=== PATIENT | female | born 1980 | race Caucasian/White ===

== ENCOUNTER 2021-01-23 19:56 | Emergency (ER) | payer OTHER ==
--- OUTSIDE RECORDS SUMMARY | 2021-01-23 20:00 | XMS REPORT | Continuity of Care Document ---
:1980 Author Organization [facility] t Address [address] [place] [address] Care Team Providers Name Role Phone Helen VELEZ Primary Care Physician Unavailable Mel Lara Attending Clinician Alley GUADALUPE Attending Clinician ALLEY Attending Clinician Unavailable Shahnaz GUADALUPE Attending Clinician Helen VELEZ Attending Clinician Unavailable Payers Payer Name Policy Type Policy Effective Date Expiration Date Sour ce Number MEDICAREMEDICARE PART [id number] MD Viramontes A AND 00:00:00 [id number] 2001-P [id number] [place], [place] This patient has no known problems. Allergies, Adverse Reactions, Alerts This patient has no known allergies or adverse reactions. Family History Family Member Diagnosis Comments Start Date Stop Date Source Natural father Colon cancer MD Oleary son Maternal grandmother Breast cancer Kael Viramontes Social History Social Habit Start Date Stop Date Quantity Comments Source History [facility] MD Viramontes Alcohol Std Drinks History [facility] MD Viramontes Alcohol Binge Tobacco use and 2019-10-31 2019-10-31 Never used MD Marlow on exposure 00:00:00 00:00:00 Alcohol intake 2019-10-31 2019-10-31 Lifetime MD Rebecca rivas 00:00:00 00:00:00 non-drinker (finding) History [facility] 2019-10-31 2019-10-31 1 MD Viramontes Alcohol Frequency 00:00:00 00:00:00 Sex Ass[birth year] At [birth year] MD Marlow on 00:00:00 00:00:00 Smoking Status Start Date Stop Date Source Never smoker MD Viramontes Medications This patient has no known medications. Immunizations Ordered Immunization Filled Immunization Date Status Commen ts Source Name Name Pfizer SARS-CoV-2 2020-11-04 Completed MD Linn rson Vaccination 00:00:00 Pfizer SARS-CoV-2 2020-10-14 Completed MD Linn rson Vaccination 00:00:00 Procedures This patient has no known procedures. Encounters Start End Encounter Admission Attending Care Care Encounter Source Date/Time Date/Time Type Type Clinicians Facility Department ID 2021-01-11 2021-01-11 Emergency [facility] [id number] 22:05:00 23:34:00 Agata Puri [id number] [place] [id number] [place] [id number] 2020-11-04 2020-11-04 Outpatient ADELINA HAGER SABINA MDA [id number] 08:18:57 08:18:57 VI rivas 2020-10-14 2020-10-14 Outpatient ADELINA HAGER MDA MDA [id number] 08:13:35 08:13:35 VI rivas 2020-06-06 2020-06-06 [place] THERESA Christie [id number] 00:00:00 00:00:00 [id number] [facility] [id number] [facility] [id number]. [id number] 2019-10-31 2019-10-31 Outpatient ADELINA VELEZ SABINA MDA [id number] 11:04:34 23:59:00 ANDREA rivas 2019-10-31 2019-10-31 Outpatient ADELINA VELEZ SABINA MDA [id number] 09:44:13 11:03:00 ANDREA rivas Results This patient has no known results.
--- NOTE | 2021-01-23 20:23 | RAD REPORT ---
EXAM DESCRIPTION: Reji Sharma (2 Views)01/23/2021 8:19 pm CLINICAL HISTORY: Cough COMPARISON: 2014 FINDINGS: The lungs appear clear of acute infiltrate. The heart is normal size IMPRESSION: No acute abnormalities displayed
[2021-01-23 21:50] LABS: Absolute Lymphocytes (CBC) 1.6 K/uL (0.7-4.9); Hematocrit 43.2 % (36.0-45.0); MPV 9.8 fL (7.6-11.3); RBC Red Blood Cell Count 4.99 M/uL (3.86-4.86)
[2021-01-23 22:04] LABS: Potassium 4.2 mmol/L (3.5-5.1)
[2021-01-23] MEDS ORDERED: dexAMETHasone 10 MG/ML VIAL ONE (22:28)
[2021-01-23] MEDS ORDERED: CLINDAMYCIN 900MG/D5W 900 MG/50 ML IVPB IV ONE (22:29)
--- NOTE | 2021-01-23 23:34 | ER ---
Nurse's Notes [facility] Name: Ainsley Muse Age: 40 yrs Sex: Female : 1980 Arrival Date: 01/23/2021 Time: 20:01 Bed DIS11 Private MD: Diagnosis: Acute lymphadenitis of face, head and neck Presentation: 01/23 21:00 Chief complaint: Patient states: Pain on right side of neck, difficulty swallowing, kg SOB, Loss of appetite x 2 wks. Coronavirus screen: Client denies travel out of the [place] in the last 14 days. At this time, unable to obtain information related to travel outside the [place] Client presents with at least one sign or symptom that may indicate coronavirus-19. Standard/surgical mask placed on the client. Provider contacted for isolation considerations. Ebola Screen: Patient negative for fever greater than or equal to 101.5 degrees Fahrenheit, and additional compatible Ebola Virus Disease symptoms Patient denies exposure to infectious person. Patient denies travel to an Ebola-affected area in the 21 days before illness onset. Initial Sepsis Screen: Does the patient meet any 2 criteria? No. Patient's initial sepsis screen is negative. Does the patient have a suspected source of infection? No. Patient's initial sepsis screen is negative. Risk Assessment: Do you want to hurt yourself or someone else? Patient reports no desire to harm self or others. Onset of symptoms was January 09, 2021. 21:00 Method Of Arrival: Ambulatory kg 21:00 Acuity: DARELL 4 kg Triage Assessment: 21:04 General: Appears in no apparent distress. Behavior is calm, cooperative, appropriate kg for age, quiet. Pain: Complains of pain in neck. Respiratory: Reports shortness of breath at rest on exertion cough that is non-productive, Onset: The symptoms/episode began/occurred gradually, the patient has mild shortness of breath. 21:04 EENT: Reports difficulty swallowing. 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 - Social history:: Smoking status: Patient denies any tobacco usage or history of. - Family history:: not pertinent. - Hospitalizations: : No recent hospitalization is reported. Screenin:07 Abuse screen: Denies threats or abuse. Denies injuries from another. Nutritional kg screening: No deficits noted. Tuberculosis screening: No symptoms or risk factors identified. Fall Risk None identified. Assessment: 21:30 General: Appears in no apparent distress. Behavior is calm, cooperative. Neuro: Level bb of Consciousness is awake, alert, obeys commands, Oriented to person, place, time, situation. Cardiovascular: Capillary refill < 3 seconds Patient's skin is warm and dry. Respiratory: Airway is patent Respiratory effort is even, unlabored. GI: No signs and/or symptoms were reported involving the gastrointestinal system. Derm: Skin is pink, warm \T\ dry. Musculoskeletal: Circulation, motion, and sensation intact. 23:00 Reassessment: IV infiltrated Dr Green notified new orders received pt medicated see AUG.bb 01/24 00:09 Reassessment: Patient is alert, oriented x 3, equal unlabored respirations, skin bb warm/dry/pink. pt verbalized understanding of and agrees to plan of care discharge instructions given pt ambulated with steady gait to exit. Vital Signs: 01/23 21:00 BP 140 / 92; Pulse 78; Resp 18; Temp 98.4(O); Pulse Ox 100% on R/A; Weight 63.05 kg kg (M); Height 5 ft. 0 in. (152.40 cm) (R); Pain 4/10; 01/24 00:09 BP 142 / 88; Pulse 75; Resp 16 S; Temp 97.1(TE); Pulse Ox 100% ; bb 01/23 21:00 Body Mass Index 27.15 (63.05 kg, 152.40 cm) kg ED Course: 01/23 20:01 Patient arrived in ED. es 20:19 XRAY Chest Pa And Lat (2 Views) In Process Unspecified. EDMS 21:04 Triage completed. kg 21:07 Patient has correct armband on for positive identification. kg 21:13 Richardson Green MD is Attending Physician. rn 22:00 Inserted saline lock: 22 gauge in right antecubital area, using aseptic technique. bb Missed attempt(s): 20 gauge in left antecubital area. Bleeding controlled, band aid applied, catheter tip intact. 23:08 Soft Tissue Neck Wo Contr In Process Unspecified. EDMS 01/24 00:10 No provider procedures requiring assistance completed. IV discontinued, intact, bb bleeding controlled, No redness/swelling at site. Pressure dressing applied. Administered Medications: 00:07 Discontinued: Clindamycin 900 mg IVPB once over 30 mins; (mix in 50 mL) bb 01/23 22:14 Drug: Decadron - Dexamethasone 10 mg Route: IVP; Infused Over: 3 mins; Site: left tl1 antecubital; 01/24 00:06 Follow up: Response: No adverse reaction bb 01/23 22:14 Drug: Clindamycin 900 mg Route: IVPB; Infused Over: 30 mins; Site: left antecubital; tl1 23:50 Drug: Clindamycin 300 mg Route: IM; Site: right gluteus; bb 01/24 00:08 Follow up: Response: No adverse reaction bb Outcome: 01/23 23:34 Discharge ordered by . rn 01/24 00:10 Discharged to home ambulatory. bb Condition: stable Discharge instructions given to patient, Instructed on discharge instructions, follow up and referral plans. medication usage, Demonstrated understanding of instructions, follow-up care, medications, Prescriptions given X 2. 00:10 Patient left the ED. bb Signatures: Dispatcher [employer] [facility] Tammie Burns Brenda, RN RN bb Richardson Green MD MD rn Lasagna, Tonya, RN RN tl1 Beulah Blum RN RN kg
--- NOTE | 2021-01-23 23:34 | EDPHYS ---
Physician Documentation [facility] Name: Ainsley Muse Age: 40 yrs Sex: Female : 1980 Arrival Date: 01/23/2021 Time: 20:01 Bed DIS11 Private MD: ED Physician Richardson Green HPI: 01/23 21:15 This 40 yrs old Female presents to ER via Ambulatory with complaints of rn Shortness Of Breath, Decreased Appetite, Fever, Neck Swelling. 21:15 The patient or guardian complains of pain, swelling. The symptoms are located on the rn Right anterior neck. Onset: The symptoms/episode began/occurred 1 week(s) ago. Context: The problem was sustained at home, The neck injury/problem resulted from from unknown cause. Associated signs and symptoms: Pertinent positives: This patient does not have any pertinent positive signs or symptoms associated with neck pain. Pertinent negatives: chills, fever, headache, bladder incontinence, bowel incontinence, numbness, tingling, vomiting, weakness. The pain does not radiate. Modifying factors: The symptoms are alleviated by nothing. the symptoms are aggravated by movement, pressure. Severity of symptoms: At their worst the symptoms were moderate, in the emergency department the symptoms are unchanged. The patient has not experienced similar symptoms in the past. The patient has not recently seen a physician. 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 - Social history:: Smoking status: Patient denies any tobacco usage or history of. - Family history:: not pertinent. - Hospitalizations: : No recent hospitalization is reported. ROS: 21:17 Constitutional: Negative for fever, chills, and weight loss, Eyes: Negative for injury, rn pain, redness, and discharge, ENT: + sore throat Neck: + neck pain and swelling Cardiovascular: Negative for chest pain, palpitations, and edema, Respiratory: Negative for cough, wheezing, and pleuritic chest pain, Abdomen/GI: Negative for abdominal pain, nausea, vomiting, diarrhea, and constipation, MS/Extremity: Negative for injury and deformity, Skin: Negative for injury, rash, and discoloration, Neuro: Negative for headache, weakness, numbness, tingling, and seizure. 21:17 All other systems are negative. Exam: 21:17 Constitutional: This is a well developed, well nourished patient who is awake, alert, rn and in no acute distress. Head/Face: Normocephalic, atraumatic. Eyes: Periorbital areas with no swelling, redness, or edema. ENT: Mild pharyngeal erythema, no evidence of peritonsillar abscess, uvula midline Neck: Right anterior neck with tenderness to palpation and mild lymphadenopathy. No crepitus. Cardiovascular: Regular rate and rhythm. No pulse deficits. Respiratory: No increased work of breathing, no retractions or nasal flaring. Skin: Warm, dry MS/ Extremity: Pulses equal, no cyanosis. Neuro: Awake and alert, GCS 15 Vital Signs: 21:00 BP 140 / 92; Pulse 78; Resp 18; Temp 98.4(O); Pulse Ox 100% on R/A; Weight 63.05 kg kg (M); Height 5 ft. 0 in. (152.40 cm) (R); Pain 4/10; 0812 00:09 BP 142 / 88; Pulse 75; Resp 16 S; Temp 97.1(TE); Pulse Ox 100% ; bb 01/23 21:00 Body Mass Index 27.15 (63.05 kg, 152.40 cm) kg MDM: 01/23 21:13 Patient medically screened. rn 23:32 Differential diagnosis: CT neck without abscess or deep space infection. Show some rn lymphadenopathy bilateral neck worse on the right. No evidence of peritonsillar abscess. Will DC home with antibiotics and steroids. 23:33 Differential diagnosis: Lymphadenopathy, peritonsillar abscess, deep space infection, rn lymphadenitis, strep. Data reviewed: vital signs, nurses notes, lab test result(s), radiologic studies, CT scan, plain films, and as a result, I will discharge patient. Test interpretation: by ED physician or midlevel provider: plain radiologic studies, Chest x-ray negative for pneumothorax or pneumonia.. Counseling: I had a detailed discussion with the patient and/or guardian regarding: the historical points, exam findings, and any diagnostic results supporting the discharge/admit diagnosis, radiology results, the need for outpatient follow up, to return to the emergency department if symptoms worsen or persist or if there are any questions or concerns that arise at home. Response to treatment: the patient's symptoms have mildly improved after treatment, and as a result, I will discharge patient. Special discussion: I discussed with the patient/guardian in detail that at this point there is no indication for admission to the hospital. It is understood, however, that if the symptoms persist or worsen the patient needs to return immediately for re-evaluation. ED course: CT neck without abscess or deep space infection. Show some lymphadenopathy bilateral neck worse on the right. No evidence of peritonsillar abscess. Will DC home with antibiotics and steroids. 01/23 21:11 Order name: Strep; Complete Time: 22:23 kg 01/23 21:13 Order name: CBC with Diff; Complete Time: 22:03 rn 01/23 20:04 Order name: XRAY Chest Pa And Lat (2 Views); Complete Time: 21:13 rn 01/23 21:13 Order name: Basic Metabolic Panel; Complete Time: 22:23 rn 01/23 22:24 Order name: Throat Culture EDMS 01/23 21:13 Order name: IV Start; Complete Time: 22:05 rn 01/23 23:06 Order name: Soft Tissue Neck Wo Contr EDMS Administered Medications: 01/24 00:07 Discontinued: Clindamycin 900 mg IVPB once over 30 mins; (mix in 50 mL) 01/23 22:14 Drug: Decadron - Dexamethasone 10 mg Route: IVP; Infused Over: 3 mins; Site: left tl1 antecubital; 01/24 00:06 Follow up: Response: No adverse reaction 01/23 22:14 Drug: Clindamycin 900 mg Route: IVPB; Infused Over: 30 mins; Site: left antecubital; tl1 23:50 Drug: Clindamycin 300 mg Route: IM; Site: right gluteus; 01/24 00:08 Follow up: Response: No adverse reaction Disposition Summary: 01/23/21 23:34 Discharge Ordered Location: Home rn Problem: new rn Symptoms: have improved rn Condition: Stable rn Diagnosis - Acute lymphadenitis of face, head and neck rn Followup: rn - With: Private Physician - When: As needed - Reason: Recheck today's complaints, Re-evaluation by your physician Discharge Instructions: - Discharge Summary Sheet rn - Lymphadenopathy rn Forms: - Medication Reconciliation Form rn - Thank You Letter rn - Antibiotic digital marketing intern - Prescription Opioid Use rn Prescriptions: - Clindamycin HCl 300 mg Oral Capsule - take 1 capsule by ORAL route every 6 hours for 10 days; 40 capsule; Refills: 0, rn Product Selection Permitted - Medrol (Almas) 4 mg Oral Tablets, Dose Pack - take 1 tablet by ORAL route as directed - follow package instructions; 1 rn packet; Refills: 0, Product Selection Permitted Signatures: Dispatcher [employer] EDYasmine Wolf RN RN Richardson Nicolas MD MD rn Lasagna, Tonya RN RN tl1 Beulah Blum, RN RN kg Corrections: (The following items were deleted from the chart) 01/23 23:06 21:12 Soft Tissue Neck W/Contr+CT.RAD.BRZ ordered. [facility] EDIA 23:34 23:32 Differential diagnosis: CT neck without abscess or deep space infection. Show rn some lymphadenopathy bilateral neck worse on the right. No evidence of peritonsillar abscess. Will DC home with antibiotics and steroids rn
[2021-01-24] MEDS ORDERED: CLINDAMYCIN IV 150 MG/ML (4 mL) VIAL ONE (00:11)
[2021-01-24 00:33] VITALS: O2SAT 100
[2021-01-24 00:34] VITALS: BP 142/88; TEMP 97.1
--- NOTE | 2021-01-24 12:13 | RAD REPORT ---
EXAM DESCRIPTION: CT - Soft Tissue Neck Wo Contr - 01/24/2021 6:32 am CLINICAL HISTORY: Swollen neck with right neck pain for 2 weeks. COMPARISON: None. TECHNIQUE: Axial 3.[address] imaging of the neck performed without contrast. Reformatted coronal and s agittal images obtained. Automated exposure control, adjustment of the mA and/or kV according to patient size, or use of itera tive reconstruction was performed. FINDINGS: There is mild asymmetric enlargement of the right level II lymph node, 2.9 x 1.1 x 1.0 cm in the area of the metallic marker. There is no adjacent edema. There are nonenlarged scattered lymph nodes throughout the remaining right and left neck. No subcutaneous fluid collection. No subcutaneou s emphysema. The submandibular and parotid glands are unremarkable. There is no parapharyngeal edema. Normal epigl ottis. No prevertebral soft tissue swelling. The vocal folds and subglottic airway appear normal. Intraorbital contents are unremarkable. Clear paranasal sinuses. Mastoid air cells are clear. Skull b ase appears normal. Imaged facial bones are unremarkable. Unremarkable thyroid. No supraclavicular lymphadenopathy. Clear lung apices. There is moderate lower cervical degenerative endplate change. No fracture or subluxation. No spinal canal stenosis. Neuroforamen are widely patent bilaterally at all levels. Intact posterior elements. IMPRESSION: 1. Mild right level II lymphadenopathy in the area of the metallic marker. No subcutan eous fluid collection, edema, or other mass lesion. Electronically signed by: Carrie Lincoln DO 01/23/2021 11:27 PM CDT Due to temporary technical issues with the PACS/Fluency reporting system, reports are being signed by the in house radiologist without review as a courtesy to ensure prompt reporting. The interpreting r adiologist is fully responsible for the content of the report.
== END 2021-01-24 00:10 | disposition home or self-care (01) ==
LOC: ER 19:56
DX: L03.891 Acute lymphangitis of head [any part, except face] (principal); L03.212 Acute lymphangitis of face; L03.222 Acute lymphangitis of neck
CPT/HCPCS: 87070; 85025; 80048; 36415; 87081; 70490; 71046; 96375; 96372; 96374; 99284; J1100

== ENCOUNTER 2021-02-16 14:17 | Emergency (ER) | payer OTHER ==
--- OUTSIDE RECORDS SUMMARY | 2021-02-16 14:20 | XMS REPORT | Continuity of Care Document ---
:[address] [facility] t Address [address] [place] [address] Care Team Providers Name Role Phone Helen VELEZ Primary Care Physician Unavailable Mel Lara Attending Clinician Alley GUADALUPE Attending Clinician ALLEY Attending Clinician Unavailable Shahnaz GUADALUPE Attending Clinician Helen VELEZ Attending Clinician Unavailable Payers Payer Name Policy Type Policy Effective Date Expiration Date Sour ce Number MEDICAREMEDICARE PART [id number] 2002 MD Viramontes A AND 00:00:00 [id number] 2001-P [id number] [place], [place] [facility] Problems This patient has no known problems. Allergies, Adverse Reactions, Alerts This patient has no known allergies or adverse reactions. Family History Family Member Diagnosis Comments Start Date Stop Date Source Natural father Colon cancer MD Oleary son Maternal grandmother Breast cancer Kael Viramontes Social History Social Habit Start Date Stop Date Quantity Comments Source History [facility] MD Viramontes Alcohol Std Drinks History [facility] MD Viramontes Alcohol Binge Tobacco use and 2019-10-31 2019-10-31 Never used MD Marlow on exposure 00:00:00 00:00:00 Alcohol intake 2019-10-31 2019-10-31 Lifetime MD Rebecca rivas 00:00:00 00:00:00 non-drinker (finding) History [facility] 2019-10-31 2019-10-31 1 MD Viramontes Alcohol Frequency 00:00:00 00:00:00 Sex Ass[birth year] At [birth year] MD Marlow on 00:00:00 00:00:00 Smoking Status Start Date Stop Date Source Never smoker MD Viramontes Medications This patient has no known medications. Immunizations Ordered Immunization Filled Immunization Date Status Commen ts Source Name Name Haile SARS-CoV-2 2020-11-04 Completed MD Linn rson Vaccination 00:00:00 Pfizer SARS-CoV-2 2020-10-14 Completed MD Linn rson Vaccination 00:00:00 Procedures This patient has no known procedures. Encounters Start End Encounter Admission Attending Care Care Encounter Source Date/Time Date/Time Type Type Clinicians Facility Department ID 2021-01-11 2021-01-11 Emergency [facility] [id number] 22:05:00 23:34:00 Agata Puri [id number] [place] [id number] [place] [id number] 2020-11-04 2020-11-04 Outpatient ADELINA HAGER MDA MDA [id number] 08:18:57 08:18:57 VI rivas 2020-10-14 2020-10-14 Outpatient ADELINA HAGER MDA MDA [id number] 08:13:35 08:13:35 VI rivas 2020-06-06 2020-06-06 Dustin Audrey [facility] [id number] 00:00:00 00:00:00 Vipul Yang [id number] [facility] [id number] [facility] [id number]. [id number] 2019-10-31 2019-10-31 Outpatient ADELINA VELEZ SABINA MDA [id number] 11:04:34 23:59:00 ANDREA rivas 2019-10-31 2019-10-31 Outpatient ADELINA VELEZ SABINA MDA [id number] 09:44:13 11:03:00 ANDREA rivas Results This patient has no known results.
--- OUTSIDE RECORDS SUMMARY | 2021-02-16 14:20 | XMS REPORT | Clinical Summary ---
:1980 Author Organization [facility] MD Oleary [facility] Address [address] [place] [id number] Care Team Providers Name Role Phone Helen Parsons MD Primary Care Provider Allergies No Known Active Allergies Medications No known medications Active Problems No known active problems Encounters Date Type Specialty Care Team Description 11/04/2020 Immunization Infectious Diseases Kofi Kirk SARS -CoV-2 vaccination (Primary Dx) 11/04/2020 Travel 10/14/2020 Immunization Infectious Diseases Kofi Kirk SARS -CoV-2 vaccination (Primary Dx) 10/14/2020 Travel 09/23/2020 Orders Only Infectious Diseases Kofi Kirk SARS -CoV-2 vaccination MD after 02/17/2020 Immunizations Name Administration Dates Next Due Pfizer SARS-CoV-2 Vaccination 11/04/2020, 10/14/2020 Surgical History Surgery Date Site/Laterality Comments TUBAL LIGATION APPENDECTOMY Family History Medical History Relation Name Comments Colon cancer Father Breast cancer Maternal Grandmother Relation Name Status Comments Father Maternal Grandmother Social History Tobacco Use Types Packs/Day Years Used Date Never Smoker Smokeless Tobacco: Never Used Alcohol Use Standard Drinks/Week Comments Never 0 (1 standard drink = 0.6 oz pure alcoho l) Alcohol Habits Answer Date Recorded How often do you have a drink containing alcohol? Never 10/31/2019 How many drinks containing alcohol do you have on a typical Not asked day when you are drinking? How often do you have six or more drinks on one occasion? No t asked Sex Assigned at Date Recorded Not on file Last Filed Vital Signs Not on file Plan of Treatment Health Maintenance Due Date Last Done Comments COVID-19 Vaccination Completed 11/04/2020, 10/14/2020 Results Not on fileafter 02/17/2020 Insurance Payer Benefit Plan / Subscriber ID Effective Dates Phone Addre ss Type Group MEDICARE MEDICARE PART A [id number] 2002-Hilda [phone] [place] AND B t 2
[2021-02-16 20:52] LABS: Urine Blood 2+ (Negative); Urine Glucose Negative (Negative); Urine Protein Negative (Negative)
[2021-02-16 20:53] LABS: Absolute Lymphocytes (CBC) 1.5 K/uL (0.7-4.9); Hematocrit 44.5 % (36.0-45.0); Lymphocytes % 23.2 % (15.3-44.8); MPV 10.3 fL (7.6-11.3); Protime INR 1.04; RBC Red Blood Cell Count 5.13 M/uL (3.86-4.86)
[2021-02-16 21:14] LABS: ALT/SGPT 56 U/L (12-78); AST/SGOT 20 U/L (15-37); Albumin 4.4 g/dL (3.4-5.0); Alkaline Phosphatase 121 U/L (45-117); BUN Blood Urea Nitrogen 9 mg/dL (7-18); Bicarbonate 27 mmol/L (21-32); Bilirubin Direct 0.1 mg/dL (0-0.2); Bilirubin Total 0.6 mg/dL (0.2-1.0); Glucose Level 90 mg/dL (74-106); NT PRO-BNP 71 pg/mL (<125); Potassium 3.8 mmol/L (3.5-5.1); Protein, Total 8.3 g/dL (6.4-8.2); Sodium Level 140 mmol/L (136-145); Troponin (Emerg Dept Use Only) < 0.02 ng/mL (0.0-0.045)
[2021-02-16] MEDS ORDERED: ONDANSETRON 4 MG/2 ML VIAL ONE (21:28)
[2021-02-16] MEDS ORDERED: DIPHENHYDRAMINE 50 MG/ML VIAL ONE (21:28)
[2021-02-16] MEDS ORDERED: MORPHINE 4 MG/ML SYR ONE (21:28)
[2021-02-16] MEDS ORDERED: NA CHLORIDE 0.9% 1,000 ML ONE (21:29)
--- NOTE | 2021-02-16 21:31 | RAD REPORT ---
EXAM DESCRIPTION: Reji Single View02/16/2021 9:08 pm CLINICAL HISTORY: cough COMPARISON: January 23, 2021 FINDINGS: The lungs appear clear of acute infiltrate. The heart is normal size IMPRESSION: No acute abnormalities displayed
--- NOTE | 2021-02-16 21:51 | RAD REPORT ---
EXAM DESCRIPTION: CT - Soft Tissue Neck W/Contr - 02/16/2021 9:40 pm CLINICAL HISTORY: Neck pain and swelling COMPARISON: January 23, 2021 TECHNIQUE: Computed axial tomography of the neck was obtained. 50 cc Isovue 300 was administered in travenously. Coronal and sagittal reconstruction was performed. All CT scans are performed using dose optimization technique as appropriate and may include automated exposure control or mA/KV adjustment according to patient size. FINDINGS: The pharynx, tongue base, larynx and subglottic trachea appear unremarkable The parotid, submandibular and thyroid glands appear unremarkable. 1 centimeter lymph node anterior to the right jugular vein at the level of submandibular gland is wit hout significant change in size. The sinuses and mastoids are clear. IMPRESSION: Mildly enlarged right neck lymph node without significant change from the prior exam and probably reactive in nature.
--- NOTE | 2021-02-16 22:49 | EDPHYS ---
Physician Documentation [facility] Name: Ainsley Muse Age: 40 yrs Sex: Female : 1980 Arrival Date: 02/16/2021 Time: 14:34 Bed DX2 Private MD: ED Physician Bernardino Martinez HPI: 02/16 19:10 This 40 yrs old Female presents to ER via Ambulatory with complaints of Neck mh7 Swelling, Decreased Appetite, Fatigue. 19:10 The patient or guardian complains of pain, that is acute, swelling, tenderness. The mh7 symptoms are located on the Right anterior neck. Onset: The symptoms/episode began/occurred 6 week(s) ago. Context: The problem was sustained at an unknown location, The neck injury/problem resulted from from unknown cause. Associated signs and symptoms: Pertinent positives: Decreased appetite, fatigue, Pertinent negatives: chills, constipation, fever, headache, bladder incontinence, bowel incontinence, nausea, numbness, tingling, vomiting, weakness. The pain does not radiate. Modifying factors: The symptoms are alleviated by nothing. the symptoms are aggravated by pressure. Severity of symptoms: At their worst the symptoms were moderate, 21 day(s) ago, in the emergency department the symptoms are unchanged. The patient has been recently seen at the [facility] Emergency Department, last month. Patient reports swelling of right anterior neck for 6 weeks. Area is painful and tender to touch. She also reports decreased appetite and generalized fatigue. She was seen here on 01/23 for this issue and had work-up done including a noncontrast soft tissue neck CT which showed enlarged lymph node. She was given prescription for antibiotics and steroids which she states has not improved her condition. She has not had any follow-up with a PCP or specialist since being seen in the ED. She denies any headache, chest pain, abdominal pain, shortness of breath, nausea, vomiting, dizziness, numbness/tingling, or focal weakness.. 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 - Social history:: Smoking status: Patient denies any tobacco usage or history of. ROS: 19:10 Constitutional: Negative for fever, chills, and weight loss, Eyes: Negative for injury, mh7 pain, redness, and discharge, ENT: Negative for injury, pain, and discharge, Cardiovascular: Negative for chest pain, palpitations, and edema, Respiratory: Negative for shortness of breath, cough, wheezing, and pleuritic chest pain, Abdomen/GI: Negative for abdominal pain, nausea, vomiting, diarrhea, and constipation, Back: Negative for injury and pain, : Negative for injury, bleeding, discharge, and swelling, MS/Extremity: Negative for injury and deformity, Skin: Negative for injury, rash, and discoloration, Neuro: Negative for headache, weakness, numbness, tingling, and seizure, Psych: Negative for depression, anxiety, suicide ideation, homicidal ideation, and hallucinations, Allergy/Immunology: Negative for hives, rash, and allergies. Exam: 19:10 Constitutional: This is a well developed, well nourished patient who is awake, alert, mh7 and in no acute distress. Head/Face: Normocephalic, atraumatic. Eyes: Pupils equal round and reactive to light, extra-ocular motions intact. Lids and lashes normal. Conjunctiva and sclera are non-icteric and not injected. Cornea within normal limits. Periorbital areas with no swelling, redness, or edema. ENT: Nares patent. No nasal discharge, no septal abnormalities noted. Tympanic membranes are normal and external auditory canals are clear. Oropharynx with no redness, swelling, or masses, exudates, or evidence of obstruction, uvula midline. Mucous membranes moist. 19:10 Chest/axilla: Normal chest wall appearance and motion. Nontender with no deformity. No lesions are appreciated. Cardiovascular: Regular rate and rhythm with a normal S1 and S2. No gallops, murmurs, or rubs. Normal PMI, no JVD. No pulse deficits. Respiratory: Lungs have equal breath sounds bilaterally, clear to auscultation and percussion. No rales, rhonchi or wheezes noted. No increased work of breathing, no retractions or nasal flaring. Abdomen/GI: Soft, non-tender, with normal bowel sounds. No distension or tympany. No guarding or rebound. No evidence of tenderness throughout. Back: No spinal tenderness. No costovertebral tenderness. Full range of motion. Skin: Warm, dry with normal turgor. Normal color with no rashes, no lesions, and no evidence of cellulitis. MS/ Extremity: Pulses equal, no cyanosis. Neurovascular intact. Full, normal range of motion. Neuro: Awake and alert, GCS 15, oriented to person, place, time, and situation. Cranial nerves II-XII grossly intact. Motor strength 5/5 in all extremities. Sensory grossly intact. Cerebellar exam normal. Normal gait. Psych: Awake, alert, with orientation to person, place and time. Behavior, mood, and affect are within normal limits. 19:10 Neck: External neck: swelling, that is mild, of the right submandibular area, tenderness, that is moderate, of the right submandibular area, Enlarged lymph node, C-spine: appears grossly normal, Thyroid: appears normal, Trachea: is midline with no obvious abnormalities, ROM/movement: pain, that is mild, with rotation to the right, limited range of motion, is not appreciated, Meningeal signs: are not present, nuchal rigidity, is not appreciated, Lymph nodes: lymphadenopathy is appreciated, anterior cervical nodes, Right. Vital Signs: 15:18 BP 135 / 96; Pulse 94; Resp 20 S; Temp 97.6(TE); Pulse Ox 100% on R/A; aa5 23:01 BP 131 / 85; Pulse 80; Resp 16 S; Temp 96.5(O); Pulse Ox 98% on R/A; bb MDM: 22:46 Data reviewed: vital signs, nurses notes, old medical records, lab test result(s), CBC, [facility] electrolytes, radiologic studies, CT scan, plain films. Data interpreted: Pulse oximetry: on room air is 100 %. Interpretation: normal. Counseling: I had a detailed discussion with the patient and/or guardian regarding: the historical points, exam findings, and any diagnostic results supporting the discharge/admit diagnosis, lab results, radiology results, the need for outpatient follow up, an ENT specialist, to return to the emergency department if symptoms worsen or persist or if there are any questions or concerns that arise at home. Response to treatment: the patient's symptoms have markedly improved after treatment. 22:49 Patient medically screened. mh02/16 19:29 Order name: Basic Metabolic Panel; Complete Time: 21:22 [facility] 02/16 19:29 Order name: CBC with Diff; Complete Time: 20:56 02/16 19:29 Order name: LFT's; Complete Time: 21:22 02/16 19:29 Order name: Magnesium; Complete Time: 21:22 [facility] 02/16 19:29 Order name: NT PRO-BNP; Complete Time: 21:22 [facility] 02/16 19:29 Order name: PT-INR; Complete Time: 20:56 02/16 19:29 Order name: Troponin (emerg Dept Use Only); Complete Time: 21:22 [facility] 02/16 19:29 Order name: XRAY Chest (1 view); Complete Time: 22:44 [facility] 02/16 19:30 Order name: CT Soft Tissue Neck W/contr; Complete Time: 22:44 [facility] 02/16 20:52 Order name: Urine Dipstick-Ancillary; Complete Time: 20:56 [facility] 02/16 19:29 Order name: EKG; Complete Time: 19:30 02/16 19:29 Order name: Cardiac monitoring; Complete Time: 22:37 [facility] 02/16 19:29 Order name: EKG - Nurse/Tech; Complete Time: 20:53 [facility] 02/16 19:29 Order name: IV Saline Lock; Complete Time: 20:53 02/16 19:29 Order name: Labs collected and sent; Complete Time: 20:53 [facility] 02/16 19:29 Order name: O2 Per Protocol; Complete Time: 20:54 [facility] 02/16 19:29 Order name: O2 Sat Monitoring; Complete Time: 20:54 7 Administered Medications: 21:15 Drug: morphine 4 mg Route: IVP; Site: right antecubital; bb 22:20 Follow up: Response: No adverse reaction; Pain is decreased; RASS: Alert and Calm (0) bb 21:15 Drug: Zofran (Ondansetron) 4 mg Route: IVP; Site: right antecubital; bb 22:20 Follow up: Response: No adverse reaction bb 21:15 Drug: NS 0.9% 1000 ml Route: IV; Rate: 1000 ml; Site: right antecubital; bb 22:20 Follow up: IV Status: Completed infusion; IV Intake: 1000ml bb 21:15 Drug: Benadryl (diphenhydrAMINE) 25 mg Route: IVP; Site: right antecubital; bb 22:22 Follow up: Response: No adverse reaction bb Disposition Summary: 02/16/21 22:49 Discharge Ordered Location: Home [facility] Problem: an ongoing problem [facility] Symptoms: have improved [facility] Condition: Stable [facility] Diagnosis - Lymphadenopathy, Neck [facility] - Acute lymphadenitis of face, head and neck [facility] Followup: [facility] - With: Private Physician - When: 1 - 2 days - Reason: Worsening of condition, Recheck today's complaints, Continuance of care, Re-evaluation by your physician Followup: [facility] - With: Dara Reilly MD - When: 1 - 2 days - Reason: Worsening of condition, Further diagnostic work-up, Recheck today's complaints Discharge Instructions: - Discharge Summary Sheet [facility] - Lymphadenopathy [facility] Forms: - Medication Reconciliation Form [facility] - Thank You Letter [facility] - Antibiotic Education [facility] - Prescription Opioid Use [facility] Prescriptions: - Tylenol-Codeine #3 300 mg-30 mg Oral - take 2 tablet by ORAL route every 6 hours As needed; 20 tablet; Refills: 0, 7 Product Selection Permitted Signatures: Dispatcher [employer] Yasmine Augustin RN RN Avirl Olivares RN RN Bernardino Mckeon MD MD [facility] Corrections: (The following items were deleted from the chart) 15:21 15:20 Allergies: Aspirin; larisa peres
--- NOTE | 2021-02-16 22:49 | ER ---
Nurse's Notes [facility] Name: Ainsley Muse Age: 40 yrs Sex: Female : 1980 Arrival Date: 02/16/2021 Time: 14:34 Bed DX2 Private MD: Diagnosis: Lymphadenopathy, Neck;Acute lymphadenitis of face, head and neck Presentation: 02/16 15:18 Chief complaint: Patient states: diagnosed with lymphadenopathy on January 23 and aa5 prescribed clindamycin and Medrol pack without improvement of symptoms. Coronavirus screen: sore throat. Ebola Screen: Patient negative for fever greater than or equal to 101.5 degrees Fahrenheit, and additional compatible Ebola Virus Disease symptoms. Initial Sepsis Screen: Does the patient meet any 2 criteria? No. Patient's initial sepsis screen is negative. Does the patient have a suspected source of infection? No. Patient's initial sepsis screen is negative. Risk Assessment: Do you want to hurt yourself or someone else? Patient reports no desire to harm self or others. Onset of symptoms was February 2021. 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 - Social history:: Smoking status: Patient denies any tobacco usage or history of. Screenin:31 Abuse screen: Denies threats or abuse. Denies injuries from another. Nutritional lp1 screening: No deficits noted. Tuberculosis screening: No symptoms or risk factors identified. Fall Risk None identified. Assessment: 21:24 Reassessment: Returned from CT. lp1 23:04 Reassessment: Patient is alert, oriented x 3, equal unlabored respirations, skin bb warm/dry/pink. pt verbalized understanding of and agrees to plan of care discharge instructions given pt ambulated with steady gait to exit accompanied by spouse. Vital Signs: 15:18 BP 135 / 96; Pulse 94; Resp 20 S; Temp 97.6(TE); Pulse Ox 100% on R/A; aa5 23:01 BP 131 / 85; Pulse 80; Resp 16 S; Temp 96.5(O); Pulse Ox 98% on R/A; bb ED Course: 14:34 Patient arrived in ED. as 15:18 Arm band placed on. aa5 15:20 Triage completed. aa5 19:01 Bernardino Martinez MD is Attending Physician. 7 19:10 Lauren Turner, RN is Primary Nurse. lp1 20:54 Basic Metabolic Panel Sent. 5 20:54 CBC with Diff Sent. 5 20:54 LFT's Sent. 5 20:54 Magnesium Sent. 5 20:54 NT PRO-BNP Sent. 5 20:54 PT-INR Sent. 5 20:54 Troponin (emerg Dept Use Only) Sent. 5 20:55 Initial lab(s) drawn, by nh, sent to lab. EKG done, by ED staff, reviewed by Bernardino Martinez MD. Inserted saline lock: 20 gauge in right antecubital area, using aseptic technique. Blood collected. 21:08 XRAY Chest (1 view) In Process Unspecified. EDMS 21:40 CT Soft Tissue Neck W/contr In Process Unspecified. EDMS 22:32 Patient has correct armband on for positive identification. lp1 22:47 Dara Reilly MD is Referral Physician. [facility] 23:05 No provider procedures requiring assistance completed. IV discontinued, intact, bb bleeding controlled, No redness/swelling at site. Pressure dressing applied. Administered Medications: 21:15 Drug: morphine 4 mg Route: IVP; Site: right antecubital; bb 22:20 Follow up: Response: No adverse reaction; Pain is decreased; RASS: Alert and Calm (0) bb 21:15 Drug: Zofran (Ondansetron) 4 mg Route: IVP; Site: right antecubital; bb 22:20 Follow up: Response: No adverse reaction bb 21:15 Drug: NS 0.9% 1000 ml Route: IV; Rate: 1000 ml; Site: right antecubital; bb 22:20 Follow up: IV Status: Completed infusion; IV Intake: 1000ml bb 21:15 Drug: Benadryl (diphenhydrAMINE) 25 mg Route: IVP; Site: right antecubital; bb 22:22 Follow up: Response: No adverse reaction bb Intake: 22:20 IV: 1000ml; Total: 1000ml. bb Outcome: 22:49 Discharge ordered by . roc 23:06 Discharged to home ambulatory, with family. bb 23:06 Condition: stable 23:06 Discharge instructions given to patient, Instructed on discharge instructions, follow up and referral plans. no driving heavy equipment, medication usage, Demonstrated understanding of instructions, follow-up care, medications, Prescriptions given X 1. 23:06 Patient left the ED. bb Signatures: Dispatcher [employer] EDNicolle Hernandez Brenda RN RN bb Avril Sykes RN RN aa5 Lauren Turner RN RN 1 Demi Hermosillo 5 Bernardino Martinez MD MD 7 Corrections: (The following items were deleted from the chart) 15:21 15:20 Allergies: Aspirin; aa5 aa5
[2021-02-16 23:12] VITALS: BP 131/85; TEMP 96.5; O2SAT 98
--- NOTE | 2021-02-18 16:58 | EKG ---
Test Date: 2021-02-16 Test Time: 20:42:54 Automatic Log Cut Off Sawyer: MAJOR MEASUREMENT RESULTS: Intervals: Rate: 77 MT: 92 QRSD: 78 QT: 388 QTc: 439 [place]: P: 69 MT: 92 QRS: 77 T: 87 INTERPRETIVE STATEMENTS: Sinus rhythm with short MT Nonspecific ST abnormality Abnormal ECG No previous ECG available for comparison Electronically Signed On 02-18-21 16:56:10 CDT by Deejay Campbell
== END 2021-02-16 23:06 | disposition home or self-care (01) ==
LOC: ER 14:17
DX: L04.0 Acute lymphadenitis of face, head and neck (principal)
CPT/HCPCS: 96361; 93005; 85025; 80048; 36415; 83735; 85610; 80076; 81003; 84484; 83880; 70491; 71045; 96375; 96374; 99284; Q9967; J1200; J7030; J2405

== ENCOUNTER 2021-08-09 06:16 | Day surgery (SDC) | payer OTHER ==
--- NOTE | 2021-08-08 07:37 | EKG ---
Test Date: 2021-08-06 Test Time: 12:41:04 Business Services Tech: NATIVIDAD MEASUREMENT RESULTS: Intervals: Rate: 68 GA: 106 QRSD: 86 QT: 402 QTc: 427 [place]: P: 32 GA: 106 QRS: 69 T: 54 INTERPRETIVE STATEMENTS: Sinus rhythm with short GA Otherwise normal ECG Compared to ECG 08/06/2021 12:40:26 No significant changes Electronically Signed On 08-08-21 07:35:59 VARNISHER APPRENTICE by Deejay Campbell
--- NOTE | 2021-08-08 07:37 | EKG ---
Test Date: 2021-08-06 Test Time: 12:40:26 Lead Process Engineer: NATIVIDAD MEASUREMENT RESULTS: Intervals: Rate: 67 MO: 100 QRSD: 88 QT: 402 QTc: 424 [place]: P: 19 MO: 100 QRS: 70 T: 55 INTERPRETIVE STATEMENTS: Sinus rhythm with short MO Otherwise normal ECG Electronically Signed On 08-08-21 07:36:00 MANAGER [facility] by Deejay Campbell
[2021-08-09] MEDS: Ringers Lactate 1,000 ML IV ONE (06:46)
[2021-08-09] MEDS ORDERED: MIDAZOLAM HCL 2 MG/2 ML INJ ONE (07:05)
[2021-08-09] MEDS ORDERED: dexAMETHasone 10 MG/ML VIAL ONE (07:05)
[2021-08-09] MEDS ORDERED: FENTANYL CITR 100 MCG/2 ML ONE ×2 (07:05→08:20)
[2021-08-09] MEDS ORDERED: propofoL 200 MG/20 ML VIAL IV ONE (07:05)
[2021-08-09] MEDS ORDERED: ONDANSETRON 4 MG/2 ML VIAL ONE (07:10)
[2021-08-09] MEDS ORDERED: LIDOCAINE 2% MPF 5 ML VIAL ONE (07:11)
[2021-08-09] MEDS: LIDOCAINE 1% W/EPI 1:100,000 MDV 50 ML VIAL ONE ×3 (08:00→08:09)
[2021-08-09] MEDS ORDERED: KETOROLAC 30 MG/ML INJ ONE (08:38)
[2021-08-09] MEDS ORDERED: Mastisol Adhesive Liq ONE (08:40)
[2021-08-09 09:05] VITALS: O2SAT 100
--- NOTE | 2021-08-09 09:08 | P.OP ---
Poultry Processor: Mary Lorenz Preoperative diagnosis: chronic lymphadenitis Postoperative diagnosis: same Primary procedure: excision deep cervical lymph node Anesthesia: general Estimated blood loss: 5ml Specimen: right level 2 lymph node, fresh for path evaluation Findings: right cervical lymph node, low clinicial suspicion for lymphoma Operative Technique: Indication for procedure: The patient presented with a CT scan with persistently enlarged and tender lymph node at level 2 of the right neck. The CT scan demonstrated a 1 x 2 cm lymph node near the anterior border of the sternocleidomastoid muscle, anterior to the jugular vein and just posterior to the submandibular gland. The risks benefits and alternatives to the procedure were discussed with the patient and her spouse they agreed to proceed. Description of procedure in detail: Patient was brought to the operating room she was placed under general anesthesia via LMA. The head was turned towards the left for exposure of the right neck. Surgeon performed ultrasound was briefly performed in order to confirm the location and aid in surgical incision planning. The ultrasound findings were consistent with the CT and physical exam findings. The planned incision site was injected with 2 mL of 1% lidocaine with epinephrine. The neck was then prepped with Betadine and draped in a sterile fashion. A 2-1/2 cm incision was made horizontally about 2 fingerbreadths below the angle of the mandible the skin was incised using a 15 blade scalpel the subcutaneous tissues were divided using Bovie electrocautery. The platysma muscle was identified and divided. A wheat [place] retractor was used to provide retraction and aid in better visualization. The area was carefully palpated and soft tissues judiciously dissected using the Thompson dissector and Bovie electrocautery. The lymph node was identified with some pressure on the sternocleidomastoid muscle which allowed the lymph node to the elevated into the surgical field. The lymph node was then circumferentially dissected using blunt dissection and the LigaSure. After removal of the lymph node the surgical cavity was carefully inspected and there was no evidence of bleeding. The surgical bed was thoroughly irrigated with sterile saline and reinspected with no evidence of bleeding. The wound was then closed in a layered fashion using 4-0 Vicryl deep sutures and 5-0 Monocryl subcuticular sutures. The skin was cleaned and dried; Mastisol and Steri-Strips was applied to the incision. The procedure was concluded and the patient was returned to care of anesthesia for awakening space in the operating room which proceeded without difficulty. Complications: None Implants: none Fluids & blood products: 400ml crystalloid Transferred to: Recovery Room Condition: Good
[2021-08-09 09:16] VITALS: TEMP 97.6
--- NOTE | 2021-08-09 09:26 | RAD REPORT ---
EXAM DESCRIPTION: US - Ultrasound Intraop - 08/09/2021 8:10 am CLINICAL HISTORY: Lymphadenopathy COMPARISON: CT June 2021 IMPRESSION: Sonographic evaluation performed intraoperatively for localization of an upper right nec k lymph node.
[2021-08-09 11:33] VITALS: BP 123/85
== END 2021-08-09 09:54 | disposition home or self-care (01) ==
LOC: OR 06:16
PROVIDERS: ATTEND Otolaryngology
PROC: 07B10ZX Excision of Right Neck Lymphatic, Open Approach, Diagnostic (ICD-10-PCS; principal; 2021-08-09 08:00)
DX: I88.1 Chronic lymphadenitis, except mesenteric (principal); R49.0 Dysphonia; R03.0 Elevated blood-pressure reading, without diagnosis of hypertension; Z20.822 Contact with and (suspected) exposure to COVID-19
CPT/HCPCS: 93005 ×2; 36415; 84703; 88305; 76998; 38510; U0002; J2704; J2250; J3010 ×2; J1100; J7120; J2405